=== PATIENT | female | born 1950 | race Caucasian/White ===

== ENCOUNTER 2016-12-27 05:29 | Outpatient (CLI) | payer MEDICARE ==
[~2016-12-27] VITALS: Ht 161.3 cm; Wt 86.2 kg
[~2016-12-27 05:29] MED LIST: FLUO20CA42 PO; LISI-552 PO; OMEP20CA12 PO; OXYB5TAB9 PO; VERA240C2 PO
[2016-12-27] MEDS ORDERED: BENA10TA2 PO (15:29)
== END 2016-12-27 15:33 ==
LOC: PREOP 05:29
PROVIDERS: ATTEND Internal Medicine
DX: Z01.818 Encounter for other preprocedural examination (principal); Z12.11 Encounter for screening for malignant neoplasm of colon

== ENCOUNTER 2016-12-29 07:05 | Day surgery (SDC) | payer MEDICARE ==
--- NOTE | 2016-12-22 07:41 | HISTORY AND PHYSICAL ---
DATE OF SERVICE: 12/29/2016 HISTORY OF PRESENT ILLNESS: The patient is a 66-year-old white female seen in the office for followup of hypertension and a past history of PSVT. She was also here for her 2017 healthcare quality patient assessment. She reports that she has been feeling well. As part of her review of routine screening issues, it has been 13 years since her last colonoscopy which was unremarkable. She is deemed to be of average risk because she is not aware of any family history for colon cancer. She is set up for screening colonoscopy on 12/29/2016. Prep instructions were given and questions were answered. PAST MEDICAL HISTORY: Significant for hypertension without known coronary artery disease. She has a history of PSVT for which she underwent ablation in 2004, and has not had recurrence since that time. She denies palpitations, heart racing, presyncope, or syncope. She underwent six-item cognitive impairment tests which is in the normal range scoring 2. She underwent patient health questionnaire for depression evaluation, scored a total of 2 indicative of low risk for depression within normal range. PHYSICAL EXAMINATION: GENERAL: Reveals an overweight white female with a calculated BMI of 31. VITAL SIGNS: Blood pressure, initially, 156/82 at the beginning of the interview. At the end of the interview, she was down to 138/76. Her weight was down 3.2 pounds, and she has been portion controlling and walking on a regular basis. CHEST: Clear. CARDIOVASCULAR: Regular rate and rhythm without murmur, S3 or S4. ABDOMEN: Soft, supple without mass, organomegaly or tenderness. EXTREMITIES: Reveal no cyanosis, clubbing or edema. SKIN: The skin evaluation revealed no suspicious nevi. She was reassured about some skin tags around the neck. She did have one slightly irritated by a chain, and was told she could return for removal. ASSESSMENT AND PLAN: 1. Hypertension under good control on current therapy.2. The patient is in need of screening colonoscopy, and was also set up for a screening mammography and screening bone density. Screening colonoscopy as noted above was set up for 12/29. Her mammogram date was set at 01/04 as well as bone density testing. She is scheduled for routine followup in 6 months. Job ID: [id number] DocumentID: [id number] Dictated Date: 12/20/2016 16:48:34 Cabin Supervisor Date: 12/20/2016 17:23:46 Dictated By: ÁNGELA STRICKLAND MD
[~2016-12-29] VITALS: Ht 161.3 cm; Wt 86.2 kg
[~2016-12-29 07:05] MED LIST changes: +BENA10TA2 PO
[2016-12-29] MEDS ORDERED: FLUMAZENIL (ROMAZICON) 0.1 MG/ML 5 ML VIAL INJ PRN (07:30)
[2016-12-29] MEDS ORDERED: NALOXONE 0.4 MG/ML 1 ML (NARCAN) VIAL IVP PRN (07:30)
[2016-12-29] MEDS ORDERED: LIDOCAINE JELLY 2% (XYLOCAINE) 5 ML TUBE MM PRN (07:30)
[2016-12-29] MEDS ORDERED: 1/2 NS IV SOLUTION 1,000 ML IV STA (07:30)
[2016-12-29] MEDS ORDERED: 1/2 NS IV SOLUTION 1,000 ML IV ONE (07:33)
--- NOTE | 2016-12-29 07:43 | Pre-Op Note & Conscious Sedat ---
Pre-Operative Progress Note H&P Reviewed The H&P was reviewed, patient examined and no changes noted. Date H&P Reviewed: Dec 29, 2016 Time H&P Reviewed: 07:43 Conscious Sedation Pre-Proced ASA Class: 2 Airway Mallampati Classification: (bad river band appropriate class) I. II. III, IV Lungs Heart ASA score ASA 1: a normal healthy patient ASA 2: a patient with a mild systemic disease (mid diabetes, controlled hypertension, obesity ASA 3: a patient with a severe systemic disease that limits activity (angina , COPD, prior Myocardial infarction) ASA 4: a patient with an incapacitating disease that is a constant threat to life (CHF, renal failure) ASA 5: a moribund patient not expected to survive 24 hrs. (ruptured aneurysm) ASA 6: a declared brain patient whose organs are being harvested. For emergent operations, add the letter E after the classification Grade 3 Sedation Plan: Analgesia, Amnesia, Plan communicated to team members, Discussed options with patient/fam, Discussed risks with patient/fam Note The patient is an appropriate candidate to undergo the planned procedure, sedation, and anesthesia. The patient immediately re-assessed prior to indication. ÁNGELA STRICKLAND MD Dec 29, 2016 07:43
[2016-12-29] MEDS ORDERED: MIDAZOLAM 2 MG/2 ML (VERSED) VIAL IVP PRN (07:45)
[2016-12-29 07:47] VITALS: BP 130/92
[2016-12-29] MEDS ORDERED: fentaNYL INJECTION 100 MCG/2 ML AMP ONE (07:54)
[2016-12-29] MEDS ORDERED: MIDAZOLAM 2 MG/2 ML (VERSED) VIAL ONE ×2 (07:55)
[2016-12-29] MEDS ORDERED: LIDOCAINE JELLY 2% (XYLOCAINE) 5 ML TUBE ONE (07:55)
[2016-12-29] MEDS: fentaNYL INJECTION 100 MCG/2 ML AMP IVP PRN ×2 (08:01→08:06)
[2016-12-29 08:40] VITALS: BP 139/75
[2016-12-29 09:15] VITALS: BP 142/70
[2016-12-29 09:30] VITALS: BP 142/70
--- NOTE | 2016-12-29 16:38 | OPERATIVE REPORT ---
DATE OF SERVICE: PROCEDURE: Screening colonoscopy. DESCRIPTION OF PROCEDURE: The patient was placed in left lateral decubitus position. Prior to undergoing colonoscopy, digital rectal evaluation was performed. Anal sphincter tone was normal and the perianal reflex was intact. No abnormalities were noted; no additional inspection of the anal canal or distal rectal vault. The colonoscope was then inserted into the rectum and under direct visualization advanced to the cecum. The cecum was identified by identification of the ileocecal valve and the cecal strap. Photographic documentation was obtained. Careful inspection was made as the colonoscope was withdrawn. The patient tolerated the procedure well. FINDINGS: There was no evidence for internal or external hemorrhoids, and the rectum was unremarkable. There was a 7- to 8-mm sessile adenomatous-appearing polyp noted in the mid sigmoid colon. It was biopsied and ablated and submitted for histopathology. There was no subsequent blood loss. The remainder of the sigmoid colon was unremarkable. The descending colon and splenic flexure were unremarkable. Present in the distal transverse colon was a diminutive sessile 2 x 3 mm polyp that was photographed and biopsied and ablated with no subsequent blood loss. Remainder of the transverse colon, hepatic flexure, ascending colon and cecum were unremarkable. ASSESSMENT: One small 7- to 8-mm adenomatous appearing polyp was removed via hot forceps from the mid sigmoid colon, 25 cm from the anal verge. A second diminutive polyp was removed in similar fashion and again without blood loss from the distal transverse colon. This was an otherwise normal colonoscopy of the cecum. We will await histopathology report before advocating the timing on future surveillance colonoscopy. I am her primary care physician. Job ID: [id number] DocumentID: [id number] Dictated Date: 12/29/2016 09:39:59 Customer Service Clerk Date: 12/29/2016 14:48:49 Dictated By: ÁNGELA STRICKLAND MD
--- OUTSIDE RECORDS SUMMARY | 2017-01-01 14:36 | XMS REPORT | Continuity of Care Document ---
Author Author [facility] Organization [facility] Address Unknown Phone Unavailable Allergies Active Description Code Type Severity Reaction Onset Reported/Identified Relationship to Patient Clinical Status Yes No Known Drug Allergies [id number] Drug Allergy Unknown N/ A 12/27/2016 Medications Problems Date Dx Coded Attending Type Code Diagnosis Diagnosed By 02/04/2015 Ot V76.12 02/04/2015 Ot 786.59 02/04/2015 Ot 787.02 02/05/2015 Ot V76.12 02/05/2015 Ot 786.59 02/05/2015 Ot 787.02 02/08/2015 ÁNGELA STRICKLAND MD Ot V16.3 02/08/2015 ÁNGELA STRICKLAND MD Ot V76.12 02/17/2015 ÁNGELA STRICKLAND MD Ot V16.3 02/17/2015 ÁNGELA STRICKLAND MD Ot V76.12 02/24/2015 ÁNGELA STRICKLAND MD Ot 793.89 03/02/2015 JASMINE ALANIZ, MICH T Ot 272.0 PURE HYPERCHOLESTEROLEM 03/02/2015 JASMINE ALANIZ, MICH T Ot 401.9 HYPERTENSION NOS 03/02/2015 JASMINE ALANIZ, MICH T Ot 427.31 ATRIAL FIBRILLATION 03/02/2015 JASMINE ALANIZ, MICH T Ot 786.50 CHEST PAIN NOS 03/02/2015 JASMINE ALANIZ, MICH T Ot 786.59 CHEST PAIN NEC 03/02/2015 JASMINE ALANIZ, MICH [place]keon Ot V58.69 OTH MED,LT,CURRENT USE 12/23/2015 Ot 786.59 CHEST PAIN NEC 12/23/2015 Ot 787.02 NAUSEA ALONE 12/23/2015 ÁNGELA STRICKLAND MD Ot V16.3 FAMILY HX-BREAST MALIG 12/23/2015 ÁNGELA STRICKLAND MD Ot V76.12 OTH SCREEN MAMMO-MALIGN NEOPLASM OF VINOD 12/23/2015 ÁNGELA STRICKLAND MD Ot 793.89 OTH (ABN) FINDINGS ON RADIOLOGICAL EXAMI 12/27/2015 ÁNGELA STRICKLAND MD Ot M25.511 PAIN IN RIGHT SHOULDER 12/27/2015 ÁNGELA STRICKLAND MD Ot W19.XXXA UNSPECIFIED FALL, INITIAL ENCOUNTER 12/27/2015 ÁNGELA STRICKLAND MD Ot Y99.8 OTHER EXTERNAL CAUSE STATUS 12/27/2015 ÁNGELA STRICKLAND MD Ot M25.511 PAIN IN RIGHT SHOULDER 12/27/2015 ÁNGELA STRICKLAND MD Ot W19.XXXA UNSPECIFIED FALL, INITIAL ENCOUNTER 12/27/2015 ÁNGELA STRICKLAND MD Ot Y99.8 OTHER EXTERNAL CAUSE STATUS 12/28/2015 Ot 786.59 CHEST PAIN NEC 12/28/2015 Ot 787.02 NAUSEA ALONE 12/28/2015 ÁNGELA STRICKLAND MD Ot V16.3 FAMILY HX-BREAST MALIG 12/28/2015 ÁNGELA STRICKLAND MD Ot V76.12 OTH SCREEN MAMMO-MALIGN NEOPLASM OF VINOD 12/28/2015 ÁNGELA STRICKLAND MD Ot 793.89 OTH (ABN) FINDINGS ON RADIOLOGICAL EXAMI 12/28/2015 ÁNGELA STRICKLAND MD Ot M25.511 PAIN IN RIGHT SHOULDER 12/28/2015 ÁNGELA STRICKLAND MD Ot W19.XXXA UNSPECIFIED FALL, INITIAL ENCOUNTER 12/28/2015 ÁNGELA STRICKLAND MD Ot Y99.8 OTHER EXTERNAL CAUSE STATUS 12/28/2015 Ot 786.59 CHEST PAIN NEC 12/28/2015 Ot 787.02 NAUSEA ALONE 12/28/2015 ÁNGELA STRICKLAND MD Ot V16.3 FAMILY HX-BREAST MALIG 12/28/2015 ÁNGELA STRICKLAND MD Ot V76.12 OTH SCREEN MAMMO-MALIGN NEOPLASM OF VINOD 12/28/2015 ÁNGELA STRICKLAND MD Ot 793.89 OTH (ABN) FINDINGS ON RADIOLOGICAL EXAMI 12/28/2015 ÁNGELA STRICKLAND MD Ot M25.511 PAIN IN RIGHT SHOULDER 12/28/2015 ÁNGELA STRICKLAND MD Ot W19.XXXA UNSPECIFIED FALL, INITIAL ENCOUNTER 12/28/2015 ÁNGELA STRICKLAND MD Ot Y99.8 OTHER EXTERNAL CAUSE STATUS 12/28/2015 Ot 786.59 CHEST PAIN NEC 12/28/2015 Ot 787.02 NAUSEA ALONE 12/28/2015 ÁNGELA STRICKLAND MD Ot V16.3 FAMILY HX-BREAST MALIG 12/28/2015 ÁNGELA STRICKLAND MD Ot V76.12 OTH SCREEN MAMMO-MALIGN NEOPLASM OF VINOD 12/28/2015 ÁNGELA STRICKLAND MD Ot 793.89 OTH (ABN) FINDINGS ON RADIOLOGICAL EXAMI 12/28/2015 ÁNGELA STRICKLAND MD Ot M25.511 PAIN IN RIGHT SHOULDER 12/28/2015 ÁNGELA STRICKLAND MD Ot W19.XXXA UNSPECIFIED FALL, INITIAL ENCOUNTER 12/28/2015 ÁNGELA STRICKLAND MD Ot Y99.8 OTHER EXTERNAL CAUSE STATUS 01/04/2016 ÁNGELA STRICKLAND MD Ot M25.511 PAIN IN RIGHT SHOULDER 01/04/2016 ÁGNELA STRICKLAND MD Ot W19.XXXA UNSPECIFIED FALL, INITIAL ENCOUNTER 01/04/2016 ÁNGELA STRICKLAND MD Ot Y99.8 OTHER EXTERNAL CAUSE STATUS 12/27/2016 ÁNGELA STRICKLAND MD Ot V16.3 FAMILY HX-BREAST MALIG 12/27/2016 ÁNGELA STRICKLAND MD Ot V76.12 OTH SCREEN MAMMO-MALIGN NEOPLASM OF VINOD 12/27/2016 ÁNGELA STRICKLAND MD Ot 793.89 OTH (ABN) FINDINGS ON RADIOLOGICAL EXAMI 12/27/2016 ÁNEGLA STRICKLAND MD Ot M25.511 PAIN IN RIGHT SHOULDER 12/27/2016 ÁNGELA STRICKLAND MD Ot W19.XXXA UNSPECIFIED FALL, INITIAL ENCOUNTER 12/27/2016 ÁNGELA STRICKLAND MD Ot Y99.8 OTHER EXTERNAL CAUSE STATUS 12/27/2016 ÁNGELA STRICKLAND MD Ot Z12.31 ENCNTR SCREEN MAMMOGRAM FOR MALIGNANT NE 12/27/2016 ÁNGELA STRICKLAND MD Ot Z13.820 ENCOUNTER FOR SCREENING FOR OSTEOPOROSIS 12/27/2016 ÁNGELA STRICKLAND MD Ot Z12.31 ENCNTR SCREEN MAMMOGRAM FOR MALIGNANT NE 12/27/2016 ÁNGELA STRICKLAND MD Ot Z13.820 ENCOUNTER FOR SCREENING FOR OSTEOPOROSIS 12/27/2016 ÁNGELA STRICKLAND MD Ot Z01.818 ENCOUNTER FOR OTHER PREPROCEDURAL EXAMIN 12/27/2016 ÁNGELA STRICKLAND MD Ot Z12.11 ENCOUNTER FOR SCREENING FOR MALIGNANT NE 12/29/2016 ÁNGELA STRICKLAND MD Ot V16.3 FAMILY HX-BREAST MALIG 12/29/2016 ÁNGELA STRICKLAND MD Ot V76.12 OTH SCREEN MAMMO-MALIGN NEOPLASM OF VINOD 12/29/2016 ÁNGELA STRICKLAND MD Ot 793.89 OTH (ABN) FINDINGS ON RADIOLOGICAL EXAMI 12/29/2016 ÁNGELA STRICKLAND MD Ot M25.511 PAIN IN RIGHT SHOULDER 12/29/2016 ÁNGELA STRICKLAND MD Ot W19.XXXA UNSPECIFIED FALL, INITIAL ENCOUNTER 12/29/2016 ÁNGELA STRICKLAND MD Ot Y99.8 OTHER EXTERNAL CAUSE STATUS 12/29/2016 ÁNGELA STRICKLAND MD Ot Z12.31 ENCNTR SCREEN MAMMOGRAM FOR MALIGNANT NE 12/29/2016 ÁNGELA STRICKLAND MD Ot Z13.820 ENCOUNTER FOR SCREENING FOR OSTEOPOROSIS Procedures Results Encounters ACCT No. Visit Date/Time Discharge Status Pt. Type Provider Facility Loc./Unit Complaint [id number] 12/29/2016 07:05:00 2016 09:30:00 DIS Outpatient ÁNGELA STRICKLAND MD [facility] ENDO SCREENING [id number] 12/27/2016 05:29:00 2016 15:33:00 DIS Outpatient ÁNGELA STRICKLAND MD [facility] PREOP SCREENING [id number] 03/02/2015 10:50:00 2014 13:25:00 DIS Emergency MICH FERRARO MD [facility] ER CHEST/LEFT ARM PAIN [id number] 02/10/2015 13:44:00 2014 23:59:59 CLS Outpatient ÁNGELA STRICKLAND MD [facility] RAD FOCAL ASYMMETRY L LATERAL BREAST [id number] 02/05/2015 15:24:00 2014 23:59:59 CLS Outpatient ÁNGELA STRICKLAND MD [facility] RAD SCREENING [id number] 01/04/2017 10:15:00 PEN Preadmit ÁNGELA STRICKLAND MD [facility] RAD SCREENING, LOSS OF HEIGHT [id number] 12/23/2015 16:58:00 ACT Outpatient ÁNGELA STRICKLAND MD [facility] RAD SHOULDER PAIN [id number] 09/01/2010 15:39:00 Document Registration [id number] 11/05/2009 09:11:00 Document Registration
== END 2016-12-29 09:30 | disposition home or self-care (01) ==
LOC: ENDO 07:05
PROVIDERS: ATTEND Internal Medicine
DX: Z12.11 Encounter for screening for malignant neoplasm of colon (principal); D12.3 Benign neoplasm of transverse colon; D12.5 Benign neoplasm of sigmoid colon; I10 Essential (primary) hypertension

== ENCOUNTER → 2017-01-04 | Outpatient (CLI) | payer MEDICARE ==
--- NOTE | 2017-01-04 18:35 | Diagnostic Imaging Report ---
Examination: DEXA scan. Indication: Loss of height. Technique: Bone mineral density estimated based on dual energy radiography over the lumbar spine and femoral necks, was performed. Findings: The lumbar spine T-score is 0.1. This is 28 % decreased density measurement compared to 2005 exam. The left femoral neck T-score is 0.9 and the right femoral neck is 0.6. This is a 5.7% increased density compared to 2005. Impression: Bone mineral density within normal limits. Dictated by: Dictated on workstation # [id number]
--- NOTE | 2017-01-04 19:57 | Diagnostic Imaging Report ---
Bilateral screening mammogram The current study was also evaluated with a Computer Aided Detection (CAD) system. Indication: Screening. No current complaints stated on the questionnaire. COMPARISON: 02/10/15 FINDINGS: The breasts are composed of heterogeneously dense parenchyma which may decrease mammographic sensitivity. Benign-appearing calcifications are seen. Previously seen circumscribed nodule in the outer aspect of the left breast is larger but still demonstrates circumscribed margins and was previously demonstrated to be a cyst on ultrasound of 02/10/2015 compatible with cyst enlargement. In the right breast circumscribed nodule in the central posterior aspect is again seen without change. Allowing for technique and positional differences, no suspicious change is seen. IMPRESSION: Dense breasts with no definite change. ACR BI-RADS Category 2: Benign findings. Result letter will be mailed to the patient. Note: At least 10% of breast cancer is not imaged by mammography. Dictated by: Dictated on workstation # [id number]
== END ==
LOC: RAD 09:52
PROVIDERS: ATTEND Internal Medicine
DX: Z12.31 Encounter for screening mammogram for malignant neoplasm of breast (principal); R29.890 Loss of height; Z13.820 Encounter for screening for osteoporosis
CPT/HCPCS: 77067; 77080

== ENCOUNTER → 2019-04-08 | Outpatient (CLI) | payer MEDICARE ==
[~2019-04-08] MED LIST changes: -BENA10TA2 PO; +BENA10TA9 PO; -OMEP20CA12 PO; +OMEP20CA13 PO
--- NOTE | 2019-04-11 10:47 | Diagnostic Imaging Report ---
EXAM: Digital mammogram bilateral screening COMPARISON: This study was compared to the prior exams of 01/04/2017 and 02/05/2015. There are no current complaints. FINDINGS: Fibroglandular tissue in both breasts is heterogeneously dense. This does limit the sensitivity of this exam. The previous study did show a rounded density in the upper-outer aspect of the left breast. That finding is no longer evident on this study. Most likely that was a cyst which has subsequently resolved. The overall appearance of the breast has not changed adversely. There is no primary or secondary sign of malignancy noted. IMPRESSION: There is no evidence for malignancy. ACR BI-RADS Category 1: Negative. Result letter will be mailed to the patient. Note: At least 10% of breast cancer is not imaged by mammography. Dictated by: Dictated on workstation # [id number]
== END ==
LOC: RAD 10:44
PROVIDERS: ATTEND Internal Medicine
DX: Z12.31 Encounter for screening mammogram for malignant neoplasm of breast (principal)

== ENCOUNTER → 2021-10-04 | Outpatient (CLI) | payer MEDICARE ==
[~2021-10-04] MED LIST changes: +BENA10TA66 PO; -BENA10TA9 PO; -LISI-552 PO; +LISI20TA26 PO; -OMEP20CA13 PO; +OMEP20CA18 PO; +OXYB5TAB13 PO; -OXYB5TAB9 PO
--- NOTE | 2021-10-04 15:26 | Diagnostic Imaging Report ---
INDICATION: Routine screening. COMPARISON: 04/08/2019 and 01/04/2017. TECHNIQUE: 2D and 3D bilateral screening mammography was performed with CAD. FINDINGS: Both breasts are heterogeneously dense, limiting the sensitivity of mammography. The parenchymal pattern is stable. No mass or malignant-appearing microcalcifications are seen. There are benign calcifications bilaterally. The axillae are unremarkable. IMPRESSION: No mammographic features suspicious for malignancy are identified. ACR BI-RADS Category 2: Benign findings. Result letter will be mailed to the patient. Note: At least 10% of breast cancer is not imaged by mammography. Dictated by: Dictated on workstation # [id number]
== END ==
LOC: RAD 13:15
PROVIDERS: ATTEND Internal Medicine
DX: Z12.31 Encounter for screening mammogram for malignant neoplasm of breast (principal)
CPT/HCPCS: 77063; 77067

== ENCOUNTER 2022-04-25 11:58 | Emergency (ER) | payer OTHER, MEDICARE ==
[~2022-04-25] VITALS: Ht 165 cm; Wt 79.0 kg
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
--- NOTE | 2022-04-25 13:35 | Diagnostic Imaging Report ---
INDICATION: Pain. FINDINGS: Two-view right femur shows bony demineralization and arthritis to the knee and hip joints. No fracture or dislocation, however. Knee itself is suboptimally evaluated on a positional basis. IMPRESSION: Bony demineralization and degenerative disease with no acute pathology apparent. Dictated by: Dictated on workstation # [id number]
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
[2022-04-25] MEDS ORDERED: IBUPROFEN 600 MG (MOTRIN) TAB PO ONE (13:45)
[2022-04-25 14:20] VITALS: BP 179/93
== END 2022-04-25 14:20 | disposition home or self-care (01) ==
LOC: EDUNIT# 11:58 → ER 12:00
DX: M25.461 Effusion, right knee (principal); M54.2 Cervicalgia; I10 Essential (primary) hypertension; V47.5XXA Car driver injured in collision with fixed or stationary object in traffic accident, initial encounter; Y92.481 Parking lot as the place of occurrence of the external cause
CPT/HCPCS: 70450; 71045; 72125; 73552; 73562; 73590

== ENCOUNTER → 2022-11-23 | Outpatient (CLI) | payer MEDICARE, OTHER ==
--- NOTE | 2022-11-23 16:25 | Diagnostic Imaging Report ---
INDICATION: Bilateral 3-D screening mammograms COMPARISON: 10/04/2021 and 04/08/2019 There is high breast parenchymal density bilaterally. Benign calcification is noted. There is no evidence of new dominant mass or suspicious calcification. IMPRESSION: Category 2, benign findings. High breast parenchymal density limits mammographic sensitivity. Continued physical examination and annual mammographic followup are recommended. ACR BI-RADS Category 2: Benign findings. Result letter will be mailed to the patient. Note: At least 10% of breast cancer is not imaged by mammography. Dictated by: Dictated on workstation # [id number]
== END ==
LOC: RAD 14:04
PROVIDERS: ATTEND Internal Medicine
DX: Z12.31 Encounter for screening mammogram for malignant neoplasm of breast (principal)
CPT/HCPCS: 77063; 77067